=== PATIENT | female | born 1985 | race Two or more races ===

== ENCOUNTER 2017-05-08 07:33 | Outpatient (CLI) | payer OTHER | END 2017-05-08 09:09 | disposition home or self-care (01) | LOC: SONOGRAMA 07:33 | DX: E04.2 Nontoxic multinodular goiter (principal) ==

== ENCOUNTER 2019-06-14 08:00 | Outpatient (CLI) | payer OTHER | END 2019-06-14 08:05 | disposition home or self-care (01) | LOC: SONOGRAMA 08:00 | DX: E04.2 Nontoxic multinodular goiter (principal) ==

== ENCOUNTER 2022-10-03 08:49 | Outpatient (CLI) | payer OTHER | END 2022-10-03 08:55 | disposition home or self-care (01) | LOC: SONOGRAMA 08:49 | PROVIDERS: ATTEND Pathology Anatomic Pathology & Clinical Pathology | DX: D34 Benign neoplasm of thyroid gland (principal); E04.9 Nontoxic goiter, unspecified ==